=== PATIENT | male | born 1990 | race Caucasian/White ===

== ENCOUNTER 2016-07-01 15:15 | Outpatient (RCR) | payer BC ==
--- NOTE | 2016-06-16 13:26 | PT/OT/ST INITIAL EVALUATION ---
Department of Health and Human Services Form Approved [facility] Care Financing Administration OMB No. [id number] PLAN OF CARE/ASSESSMENT FOR OUTPATIENT REHABILITATION (Complete for Initial Claims Only) 1. PATIENT'S NAME Jeannine Love 2. ACC # [id number] 3. HICN NA 4. PROVIDER NO. [id number] 5. TYPE: PT 6. PRIOR HOSPITALIZATION NA 7. PRIMARY DX Z98.890 status post right shoulder labral repair. 8. SECONDARY DX Right shoulder stiffness and weakness 9. ONSET DATE Injury December 2015 Surgery 05/09/2016 10. REFERRAL DATE 06/07/2016 11. SOC. DATE 06/13/2016 12. TIME OF EVAL 12:29 p.m. to 1:04 p[address]YS[address]IAN Dr. Mitesh Lin 13. CHARGES/UNITS PT evaluation low complexity 82686 Therapeutic exercise 00119 1 unit 14. G CODES NA 15. PRIOR LEVEL OF FUNCTION; PERTINENT HISTORY (Prior therapy results, reason for referral.) S: Prior to therapy the patient consented to today's evaluation and treatment. The patient is a 26-year-old male referred to physical therapy by Dr. Lin to address functional limitations secondary to right shoulder labral repair, specifically SLAP repair with capsulorrhaphy performed on 05/09/2016. Current complaint/Mechanism of injury: The patient reports that he currently has no pain. He has been in a slingshot immobilizer since surgery on 05/09/2016. The patient reports the injury occurred when he pulled his bow back while hunting and he felt his shoulder pop. Also while he was playing softball and just with overhead activity. Functional performance/Prior level of function: Prior to injury the patient was able to perform all activities without issue. Since surgery the patient has been in a slingshot immobilizer on his right upper extremity. The patient is right handed and is limited in work duties and normal activity. 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 The patient states he was told that it would be 4 to 6 months from surgery before he was fully back to his normal job duties. Therapy History: None Pain level: The patient rates the current pain level as 0/10. Obstacles to delivery of care: None noted. Aggravating factors: None Relieving factors: None Diagnostic testing: None noted Past medical history: Includes having a stomach ulcer 3 years ago, which is controlled. Bone fracture of an ankle which is healed. Past surgical history: Having wisdom teeth removed. Current medications: Include Advil, ibuprofen and Tylenol as needed. Leisure activities: Includes softball and hunting, normally. Activity level: Rated as medium to high. Personal health rating: Listed as good. Patient's Goal: The patient's goal for physical therapy includes having complete range of motion and being able to throw. 16. INITIAL ASSESSMENT/SAFETY PRECAUTIONS/MEDICAL COMPLICATIONS (Level of function at start of care. Be specific, use objective measures, list problems.) O: APPEARANCE, OBSERVATION AND GAIT: The patient presents to physical therapy wearing a slingshot immobilizer on the right shoulder and upper extremity. The patient was told at his last visit with the physician that he does not need to wear his sling at night, or around his house and not to try to lift anything heavy. The patient was instructed to wear the immobilizer when out in public to protect his right upper extremity. The patient did well with both passive range of motion within restrictions, as well as basic beginning shoulder exercises post shoulder surgery. PALPATION: The patient was tender to palpation along the anterior incision of the right shoulder and was educated in scar massage. SPECIAL TESTS: None RANGE OF MOTION/FLEXIBILITY: Active range of motion of the left shoulder flexion 164 degrees, abduction 166 degrees, external rotation measured at 90 degrees of abduction at 84 degrees. Internal rotation measured at 90 degrees of abduction is 61 degrees. Passive range of motion of the right shoulder flexion 130 degrees, abduction 90 degrees limited by restrictions of the protocol. External rotation 43 degrees measured at 45 degrees of abduction. Internal rotation 43 degrees measured at 30 degrees of abduction. No active range of motion measurements were taken this date of the right shoulder. STRENGTH: Manual muscle testing upon observation is 3-/5. TODAY'S TREATMENT: Included the initial PT evaluation followed by therapeutic exercise and the patient was given a home exercise program. 17. INITIAL POC: (Specify procedures, modalities, short and exterminator helper termite goals) A: This patient presents to physical therapy with the diagnosis of right shoulder labral repair, specifically a SLAP repair with capsulorrhaphy. The patient is not to have any aggressive passive range of motion or stretching at this time due to capsulorrhaphy procedure and with passive range of motion, evaluated during the evaluation, the patient did not have significant resistance to range of motion in any plane and will likely loosen up on his own, if not we will reevaluate at a later time. The patient would benefit from physical therapy in order to progress active range of motion to be equal to the nonsurgery shoulder, as well as to gain proper motor control and activation to restore the proper mechanics of the scapularthoracic and glenohumeral joints to provide him with the ability to return to lifting and overhead activity with proper form. PROGNOSIS: The patient has a good prognosis with active range of motion with decreased pain with regular therapy attendance and compliance with prescribed home exercise program. CONTRAINDICATIONS, PRECAUTIONS AND OBSTACLES TO DELIVERY OF CARE: The patient is not to have aggressive stretching or mobilizations at this time due to time having good active range of motion and likelihood of returning to prior range of motion without aggressive stretching, which should be limited due to capsulorrhaphy procedure. INFORMED CONSENT: The prognosis and goals were discussed with this patient, as well as the expected outcomes and possible risks. The patient agreed to undergo PT evaluation and further treatment. SHORT TERM GOALS: 1. The patient is to have a decrease in pain of the right shoulder with activity to less than or equal to 2/10 in 6 weeks in order to return to normal reaching and work without deviation. 2. The patient is to have an increase in manual muscle testing of the right shoulder to 4+/5 in 6 weeks in order to restore mechanics for overhead work and end-range reaching without deviation. 3. The patient is to have an increase in active range of motion of the right shoulder to flexibility of 160 degrees, abduction 160 degrees, external rotation 80 degrees measured at 90 degrees of abduction, and internal rotation 56 degrees measured at 90 degrees of abduction for return to work and overhead activities without deviation. 4. The patient is to be independent with a progressive home exercise program. P: Plan to treat this patient 1 to 2 times a week for 6 weeks. Treatment to include modalities for pain and inflammation. Manual therapy interventions as needed. Therapeutic exercise, active and passive range of motion, balance proprioceptive training, neural reeducation, and patient education and prescription of progressive home exercise program as tolerable. 18. FREQUENCY 1 to 2 times per week 19. DURATION 6 weeks 20. FUNCTIONAL LEVEL (End of claim period) 21. PHYSICIAN SIGNATURE ? ON FILE OR ENTER HERE: 22. DATE: I certify the need for these services furnished under this plan of care and if for partial hospitalization. 23. CERTIFICATION FROM THROUGH [facility]700
[~2016-07-01 15:15] MED LIST: NO HOME MEDICATIONS
== END 2016-07-04 11:11 | disposition home or self-care (01) ==
LOC: PT 15:15
PROVIDERS: ATTEND Orthopaedic Surgery
DX: Z98.890 Other specified postprocedural states (principal); M25.611 Stiffness of right shoulder, not elsewhere classified